=== PATIENT | female | born 1990 | race Hispanic/Latino ===

== ENCOUNTER 2017-02-04 18:13 | Inpatient (IN) | payer OTHER ==
[2017-02-04] MEDS: Lactated Ringer's 1,000 ML IV SCH ×2 (18:33→20:30)
[2017-02-04 18:47] VITALS: BMI 40.0
[2017-02-04] MEDS ORDERED: Ampicillin 2 GM in Sodium Chloride 0.9% 100 ML IVPB STA (18:49)
[2017-02-04 19:03] LABS: BASO % 0.2 % (0.0-2.0); HEMATOCRIT 35.4 % (34.0-47.0); LYMPH # 1.1 K/uL (1.0-4.3); LYMPH % 5.7 % (20.0-40.0); MEAN CELL VOLUME 84.3 fl (81.0-99.0); MEAN CORPUSCULAR HEMOGLOBIN 28.3 pg (27.0-31.0); MEAN CORPUSCULAR HGB CONC 33.6 g/dL (33.0-37.0); MEAN PLATELET VOLUME 9.3 fl (7.2-11.7); MONO # 0.9 K/uL (0.0-0.8); MONO % 4.5 % (0.0-10.0); NEUT # 17.8 K/uL (1.8-7.0); NEUT % 89.6 % (50.0-75.0); PLATELET COUNT 227 K/uL (130-400); RED CELL DISTRIBUTION WIDTH 15.9 % (11.5-14.5); WHITE BLOOD COUNT 19.9 K/uL (4.8-10.8)
[2017-02-04 19:28] LABS: TOTAL CELLS COUNTED 100
[2017-02-04 19:29] VITALS: BP 142/64; PULSE 85; RESP 16; TEMP 98.9; O2SAT 99
[2017-02-04] MEDS ORDERED: Fentanyl/Bupivacaine HCl 250 ML EPI ONE (19:39)
--- NOTE | 2017-02-04 19:53 | OBADHP ---
Datetime: 02/04/2017 19:46 Admit Comment, IP Provider: SROM at 1930 on 02/03. Planned homebirth. Spontaneous labor at home and di lated with good progress to 10cm. Very slow descent, decision to transfer to [facility] for epi dural and pitocin augmentation. Pelvic Type - PN: Adequate Extremities - PN: Normal Abdomen - PN: Normal Back - PN: Normal Breast - PN: Normal Lungs - PN: Normal Heart - PN: Normal Thyroid - PN: Normal Neurologic - PN: Normal HEENT - PN: Normal General - PN: Normal Weight - Estimated: 3500 Presentation-Admit: Vertex FHR - Baseline A Provider: 150 Amniotic Fluid Color, Provider: Clear Membranes, Provider: Ruptured Contraction Comments Provider: every 3-5 minutes Gestation - Est Wks by US: 39.0 Vital Signs Provider: Within Normal Limits IP Chief Complaint: Uterine contractions NICHD Variability Prov Fetus A: Moderate 6-25bpm NICHD Accel Fetus A IP Provider: 10X10 FHR Category Provider Fetus A: Category I NICHD Decel Fetus A IP Provider: None Dilatation, Provider: 10 Effacement, Provider: 100 Station, Provider: 0 Genitourinary Exam: Normal DTRs - PN: Normal EGA AdmitDate IP: 38.5 IP Adm Impression: Term, intrauterine ; Active labor IP Admit Plan: Admit to unit; Initiate labor protocol Signature: Keily Watson CNM
[2017-02-04 19:54] LABS: NEUTROPHIL 87 % (42-75)
[2017-02-04] MEDS ORDERED: Oxytocin 30 units/LR 500ML 500 ML IV ONE (20:11)
--- NOTE | 2017-02-04 21:26 | OBPN ---
Datetime: 02/04/2017 19:46 IP Informed Consent Obtain: Vaginal Delivery; Risks, Benefits and Alternatives Discussed Membranes, Provider: Ruptured Amniotic Fluid Color, Provider: Clear Contraction Comments Provider: every 3-5 minutes FHR - Baseline A Provider: 150 Gestation - Est Wks by US: 39.0 Weight - Estimated: 3500 Presentation-Admit: Vertex Vital Signs Provider: Within Normal Limits NICHD Accel Fetus A IP Provider: 10X10 FHR Category Provider Fetus A: Category I NICHD Variability Prov Fetus A: Moderate 6-25bpm Dilatation, Provider: 10 Effacement, Provider: 100 Station, Provider: 0 NICHD Decel Fetus A IP Provider: None Datetime: 02/04/2017 18:24 IP Progress Note Comment: Admit to [facility]. Transfer from planned homebirth for epidural an d augmentation. Patient on continuous EFM Dr Signature: Keily Watson CNM
--- NOTE | 2017-02-04 21:29 | OBPN ---
Datetime: 02/04/2017 19:00 IP Progress Note Comment: On continous monitor. Patient having significant discomfort with contracti ons every 3-5 minutes. Awaiting anesthesia for epidural. Dr Signature: Keily Watson CNM
--- NOTE | 2017-02-04 21:31 | OBPN ---
Datetime: 02/04/2017 19:30 IP Progress Note Comment: Epidural being placed by anesthesia. Patient tolerating procedure well. Dr Signature: Keily Watson CNM
--- NOTE | 2017-02-04 21:34 | OBPN ---
Datetime: 02/04/2017 20:00 IP Progress Note Comment: Patient resting comfortably with epidural in place. EFM Category I. Contin ue to monitor for labor progress and start pitocin as necessary. Dr Signature: Keily Watson CNM
--- NOTE | 2017-02-04 21:36 | OBPN ---
Datetime: 02/04/2017 21:30 IP Procedures: Sterile Vag Exam NICHD Accel Fetus A IP Provider: 1 Dilatation, Provider: 10 Effacement, Provider: 100 Station, Provider: 2 Signature: Keily Watson CNM
--- NOTE | 2017-02-04 22:49 | OBPN ---
Datetime: 02/04/2017 22:47 IP Progress Impression: Reassuring heart rate IP Progress Note Comment: Pitocin at 6mu. Contractions every 4-5 minutes. Patient feeling some press ure with start pushing soon. FHR category I. Dr Signature: Keily Watson CNM
[2017-02-04] MEDS ORDERED: AMPicillin 1 GM in Sodium Chloride 0.9% 100 ML IVPB SCH (23:45)
[2017-02-05] MEDS ORDERED: ceFAZolin 2 GM in Sodium Chloride 0.9% 100 ML IVPB ONE (01:11)
[2017-02-05] MEDS ORDERED: Morphine 1 mg/ml preservative-free Inj(Duramorph) ONE ×2 (01:11→03:39)
--- NOTE | 2017-02-05 01:14 | OBPN ---
Datetime: 02/04/2017 20:30 IP Progress Note Comment: Resting with epidural in place. Pitocin order in. Ampicillin done. Dr Signature: Keily Watson CNM
--- NOTE | 2017-02-05 01:20 | OBPN ---
Datetime: 02/04/2017 22:00 IP Progress Plan: Augmentation IP Progress Note Comment: Pitocin increased to 4mu. Patient resting comfortably with epidural. monitoring reassuring. At patient bedside. Datetime: 02/04/2017 21:00 IP Progress Impression: Arrest of dilatation/descent IP Informed Consent Obtain: Risks, Benefits and Alternatives Discussed Dr Signature: Keily Watson CNM
--- NOTE | 2017-02-05 01:22 | OBPN ---
Datetime: 02/04/2017 22:30 IP Progress Impression: Reassuring heart rate FHR - Baseline A Provider: 145 Vital Signs Provider: Reviewed; Within Normal Limits FHR Category Provider Fetus A: Category I NICHD Variability Prov Fetus A: Moderate 6-25bpm NICHD Decel Fetus A IP Provider: None Dr Signature: Keily Watson [facility]
--- NOTE | 2017-02-05 01:27 | OBPN ---
Datetime: 02/04/2017 23:00 IP Progress Plan Other: pushing IP Progress Note Comment: Pushing started. Patient comfortable and pushing with good maternal effort . Coaching for pushing done by CNM at bedside Dr Signature: Keliy MARTINEZM Datetime: 02/04/2017 22:30 NICHD Accel Fetus A IP Provider: 15X15
--- NOTE | 2017-02-05 01:49 | OBPN ---
Datetime: 02/04/2017 23:30 Contraction Comments Provider: irregular IP Progress Note Comment: Patient pushing. Contractions irregular, very spaced. CNM noticed that pit ocin tubing not attached to patient. MIK Bergman notified who came to room and restarted pitocin @ 2. Dr Signature: Keily Watson CNM
--- NOTE | 2017-02-05 01:51 | OBPN ---
Datetime: 02/05/2017 00:00 IP Progress Note Comment: Pitocin @ 4. FHR reassuring. Ampicillin ordered- awaiting from pharmacy. P ushing with contractions. Dr Signature: Keily MARTINEZ
--- NOTE | 2017-02-05 01:53 | OBPN ---
Datetime: 02/05/2017 00:30 IP Progress Note Comment: Patient pushing with contractions. Pitocin at 6mu. Regular contractions. R eviewed with patient very little progress in long period of time and may be necessary. Patie nt upset with discussion of . Agreed to give patient until 0100 to push and then if not deliv ered will strongly recommend . Patient understands.
--- NOTE | 2017-02-05 01:56 | OBPN ---
Datetime: 02/05/2017 01:00 IP Progress Impression: Arrest of dilatation/descent IP Progress Plan: Deliver- Section IP Progress Note Comment: Dr Naylor in to evaluate patient. Agrees that there is little progress a nd recommend . CNMs and patient agree with plan of care and patient consents to . Karrie garber. RN aware. Signature: Keily Watson CNM
--- NOTE | 2017-02-05 01:58 | OBPN ---
Datetime: 02/05/2017 01:30 IP Progress Note Comment: Awaiting . Patient comfortable with anesthesia. FHR category I Dr Signature: Keily Watson CNM
[2017-02-05] MEDS ORDERED: Lidocaine 2% PF (10 ml) Amp ONE (02:07)
[2017-02-05] MEDS ORDERED: Ketamine 50 mg/ml Inj (10 ml) ONE (02:08)
[2017-02-05] MEDS ORDERED: Midazolam 2 MG/2 ML VIAL ONE (02:08)
[2017-02-05] MEDS ORDERED: Propofol 10 mg/ml Inj (20 ML) ONE (02:57)
[2017-02-05] MEDS ORDERED: DiphenhydrAMINE 50 mg/ml Inj IVP PRN ×2 (05:33→06:56)
[2017-02-05] MEDS ORDERED: Oxycodone/Acetaminophen 5/325 mg Tab PO PRN ×3 (05:52→06:56)
[2017-02-05] MEDS ORDERED: Lactated Ringer's 1,000 ML IV SCH ×2 (06:00→06:56)
--- NOTE | 2017-02-05 08:49 | OBPN ---
Datetime: 02/05/2017 08:41 IP Progress Note Comment: Late Entry Shortly after 1AM I was called by the pumper gager apprentice Keily Watson reg her pt. She stated that pt had bee n pushing for 2hrs and would I evaluate for section. Pt had come to [facility] with midwifery tea m after having pushed at home for 2hr. She was given an epidural and augmented with pitocin on L_D. Pt had been examined upon arrival to [facility] by me and was noted to be 10/100/-1. Repeat exam after 1a m showed -1to 0/ with caput. p: indications for were d/w pt and an informed consent obtained.
--- NOTE | 2017-02-05 09:15 | OP ---
PROCEDURE DATE: 02/05/2017 PREOPERATIVE DIAGNOSES: A 38.6 week , arrest of descent. POSTOPERATIVE DIAGNOSES: A 38.6 week , arrest of descent. PROCEDURE: Primary section. SURGEON: Christopher Naylor MD AIRCRAFT ACCESSORIES MECHANIC: Dr. Jaylene Li SECOND TECHNICAL ANALYST: Sachi Robledo, biomass production manager practitioner. TECHNICAL ANALYST: Dr. Alexander ANESTHESIA: Epidural. ESTIMATED BLOOD LOSS: 900 mL. COMPLICATIONS: None. FINDINGS: Thick meconium, direct OP presentation, viable male with Apgars of 4 and 8, a weight of 3055 g equal to 6 pounds 11.8 ounces. DESTINATION: The patient to recovery room in satisfactory condition and to the special care level 2 nursery. A Andujar catheter was placed to drainage. INDICATIONS: The patient is a 26-year-old female 1 who was a nurse midwifery patient who had labored at home and had pushed for 2 hours. She was then brought to [place] with the midwifery team and her spouse. The biomass production manager said her plan was to administer an epidural, augment with Pitocin and administer antibiotics due to prolonged rupture of membranes. The patient pushed for 2 additonal hours in the hospital with no further descent of the head. At this point, I was called and notified of the patient's the fetus 's lack of descent and the 2 hours the patient had pushed. The nurse biomass production manager requested evaluation of patient for section. The patient was examined , lack of descent and caput were noted and patient was advised of need for . Risks, benefits and indications for section were discussed with patient and an informed consent was obtained. DESCRIPTION OF PROCEDURE: The patient was taken back to the operating room. Her epidural was topped off. A Pfannenstiel skin incision was made with the knife and this was carried down to the underlying rectus fascia with the Bovie and extended bilaterally. The inferior rectus fascial edge was grasped with Kochers and the underlying rectus muscle was dissected off. The same procedure was performed along the superior rectus fascial edge. The muscle was in the midline. The peritoneum was identified, elevated and incised superiorly and inferiorly. The bladder flap was created using sharp dissection. A lower uterine transverse incision was made with the knife and the uterine cavity was entered bluntly. Thick meconium was noted. The shoulders were immediately observed upon entry into the uterine cavity and were found to be immobile. The head was noted to be within the vagina and resistant to elevation. With the assistance of the nurse, Madalyn, who placed her hand into the vagina she was able to release the vacuum and elevate the baby's head toward the pelvis. The 's head was then elevated and delivered followed by delivery of the remaining portion of the baby. The cord was clamped and cut and the baby was handed off to the awaiting panel coverer. A cord segment was obtained for cord gas. Cord blood was collected. The placenta was delivered spontaneously and intact. The uterus was exteriorized and cleared of all clots and debris. There was a small extension inferiorly and laterally, bilaterally along the lower uterine segment. These were repaired with 0 Monocryl on the left in a running locked fashion and 0 Vicryl on the right in a running locked fashion. The uterine incision was reapproximated with 0 Vicryl in a running lock fashion followed by an imbricated stitch. Excellent hemostasis was confirmed. The abdomen was irrigated and cleared of all clots and debris. The uterus was returned to the abdomen. The pelvis was irrigated and cleared of all clots and debris. The peritoneum was reapproximated with 2-0 Vicryl in a running fashion. The fascia was reapproximated with 0 Vicryl in a running fashion beginning in the left lateral corner going to midline and another stitch beginning in the right lateral corner going to midline. Each was tied individually. The subcutaneous tissue was reapproximated with 2-0 plain in a simple interrupted fashion. The skin was reapproximated with juanjo. All sponge, lap, and needle counts were correct x 2. The patient returned to recovery room in satisfactory condition, to level 2 nursery. Of note, Dr. Li was my butcher assistant during the case. She assisted in surgical entry, surgical exposure, hemostasis, delivery of the baby and surgical closure. The procedure would not have been possible without her assistance. Christopher Naylor MD cc: [id number] TT: 02/05/2017 09:14:48 rai OSCAR
[2017-02-05] MEDS: AMPicillin 1 GM in Sodium Chloride 0.9% 100 ML IVPB SCH ×3 (09:32→16:45)
--- NOTE | 2017-02-05 18:30 | OBPPN ---
Datetime: 02/05/2017 18:21 PP Nausea Prov: Denies PP Flatus Prov: No PP BM Prov: No PP Breasts Prov: Normal PP Heart Prov: Normal PP Lungs Prov: Normal PP Abdomen/Uterus Prov: Normal PP Lochia Prov: Normal PP Vulva/Perineum Prov: Normal PP CVA Tenderness Prov: Normal PP Extremities Prov: Normal PP C/S Incision Prov: Normal PP Progress Prov: Normal PP Impression Prov: Normal progression PP Plan Prov: Continue present management PP Progress Note Prov: patient feels well. No complaints. Pain is well managed with Ibuprofen. Has held baby and breastfed x 1. no complaints of breast/nipple tenderness. Has been hand expressing a nd pumping. drinking clear liquids with no nausea or vomiting. Moving to regular diet for dinner. last dose of antibiotics at 2100. Then will D/C IV. Negative Angelo's. ok to shower. Discuss disch arge tomorrow. Vital Signs Provider PP: Reviewed; Within Normal Limits
[2017-02-06 07:27] LABS: BASO % 0.2 % (0.0-2.0); EOS % 0.3 % (0.0-4.0); HEMATOCRIT 25.2 % (34.0-47.0); LYMPH # 1.9 K/uL (1.0-4.3); LYMPH % 15.3 % (20.0-40.0); MEAN CELL VOLUME 86.3 fl (81.0-99.0); MEAN CORPUSCULAR HGB CONC 32.4 g/dL (33.0-37.0); MEAN PLATELET VOLUME 9.2 fl (7.2-11.7); MONO # 0.7 K/uL (0.0-0.8); MONO % 5.9 % (0.0-10.0); NEUT # 9.5 K/uL (1.8-7.0); NEUT % 78.3 % (50.0-75.0); RED CELL DISTRIBUTION WIDTH 15.5 % (11.5-14.5); WHITE BLOOD COUNT 12.2 K/uL (4.8-10.8)
--- NOTE | 2017-02-06 12:31 | OBPPN ---
Datetime: 02/06/2017 12:24 PP Pain Prov: Within normal limits PP Nausea Prov: Denies PP Flatus Prov: Yes PP BM Prov: No PP Breasts Prov: Normal PP Heart Prov: Normal PP Lungs Prov: Normal PP Abdomen/Uterus Prov: Normal PP Lochia Prov: Normal PP Vulva/Perineum Prov: Not Done PP CVA Tenderness Prov: Not Done PP Extremities Prov: Normal PP C/S Incision Prov: Normal PP Progress Prov: Normal PP Comments Phys Exam Prov: in nursery. Mother just finished nursing with shield on left [facility]. presales consultant at side. there for support. Reviewed need for breast stimulation q2- 3 hours with hand expression and pumping. Reviewed with Peds plan for D/C antibiotics at the 48hour m ark. Infant on IVF and will wean as improves. Plan controlled with ibuprofen. Plan for discharge . PP Impression Prov: Normal progression; difficulties PP Plan Prov: Continue present management; consult IP PP Procedures: None Vital Signs Provider PP: Reviewed
[2017-02-06] MEDS: Oxycodone/Acetaminophen 5/325 mg Tab PO PRN (14:42)
[2017-02-07] MEDS: Oxycodone/Acetaminophen 5/325 mg Tab PO PRN (01:46)
--- NOTE | 2017-02-07 11:48 | OBDCSUM ---
Datetime: 02/07/2017 11:46 Discharged to, Provider: Home Follow up at, Provider: ISAAC in office Disch Instr Activity: May be up to bathroom; May Shower Disch Instr Diet: Regular Discharge Instructions, Provider: Routine instructions given Discharge Diagnosis, Provider: Term Delivered Follow up in weeks, Provider: 1 week Disch Referrals: None Contraception discussed, Prov: Yes Disch Activity Restrictions: No exercising; No lifting; No driving; Minimize stair-climbing; No sexu al activity; Nothing in vagina - [place], tampons, douche Discharge Comment, Provider: Will see CNM for staple removal and support as needed. Contraception after Delivery: Undecided Signature: Ina Montes CNM
--- NOTE | 2017-02-07 11:48 | OBPPN ---
Datetime: 02/07/2017 11:43 PP Pain Prov: Within normal limits PP Nausea Prov: Denies PP Flatus Prov: Yes PP BM Prov: No PP Breasts Prov: Normal PP Heart Prov: Normal PP Lungs Prov: Normal PP Abdomen/Uterus Prov: Normal PP Lochia Prov: Normal PP Vulva/Perineum Prov: Normal PP CVA Tenderness Prov: Normal PP Extremities Prov: Normal PP C/S Incision Prov: Normal PP Progress Prov: Abnormal PP Comments Phys Exam Prov: Della in place. Will be removed by tutor coordinator. better toda y than yesterday. Supplemented with formula yesterday. Nursing with minimal assistance today and supp lementing with breastmilk from syringe that was pumped. PP Impression Prov: Normal progression PP Plan Prov: Continue present management; Discharge PP Plan Other Prov: discharge home tomorrow morning Vital Signs Provider PP: Within Normal Limits Dr Signature: Ina Montes CNM
[2017-02-07] MEDS ORDERED: TDAP Vaccine 0.5 mL Syr IM ONE (16:00)
== END 2017-02-08 14:35 | disposition home or self-care (01) | DRG 766 ==
LOC: H.EROB2 18:13 → H.L&D 18:50 → H.OB/GYN 02-05 09:55
PROVIDERS: ADMIT Obstetrics & Gynecology; ATTEND Obstetrics & Gynecology
PROC: 4A1HXCZ Monitoring of Products of Conception, Cardiac Rate, External Approach (ICD-10-PCS; principal; 2017-02-04)
PROC: 10D00Z1 Extraction of Products of Conception, Low, Open Approach (ICD-10-PCS; 2017-02-04)
DX: O63.1 Prolonged second stage (of labor) (principal); O77.0 Labor and delivery complicated by meconium in amniotic fluid; O62.0 Primary inadequate contractions; Z37.0 Single live birth; Z3A.38 38 weeks gestation of pregnancy